=== PATIENT | female | born 1995 | race Caucasian/White ===

== ENCOUNTER 2018-07-27 08:57 | Emergency (ER) | payer MEDICAID ==
[~2018-07-27] VITALS: Ht 172.7 cm; Wt 88.6 kg
[2018-07-27 09:06] VITALS: Ht 172.7 cm; Wt 88.6 kg
[2018-07-27 09:34] LABS: BASOPHILS 0.2 % (0-2); EOSINOPHILS 1.7 % (0-7); HEMATOCRIT 41.2 % (36.0-48.0); HEMOGLOBIN 13.9 g/dL (12-16); IMMATURE GRANULOCYTES 0.1 % (0-5); LYMPHOCYTES 30.7 % (15-50); MCH 32.3 pg (26.0-34.0); MCHC 33.7 g/dL (31.0-37.0); MCV 95.6 fL (80.0-100.0); MEAN PLATELET VOLUME 11.3 fL (7.4-10.4); MONOCYTES 8.8 % (2-11); NEUTROPHILS 58.5 % (40-80); PLATELET COUNT 230 10x3/uL (130-400); RBC 4.31 10x6/uL (4.00-5.40); RDW 12.5 % (11.5-14.5); WBC 8.8 10x3/uL (4.8-10.8)
[2018-07-27 09:42] LABS: HCG SERUM NEGATIVE (NEGATIVE)
[2018-07-27 09:48] LABS: ALKALINE PHOSPHATASE 74 U/L (46-116); ALT (SGPT) 32 U/L (10-68); BILIRUBIN - TOTAL 0.21 mg/dL (0.2-1.3); CALC OSMOLALITY 281 mosm/kg (275-300); CALCIUM 9.5 mg/dL (8.5-10.1); CARBON DIOXIDE 30.1 mmol/L (21.0-32.0); CHLORIDE - SERUM 103 mmol/L (98-107); CREATININE - SERUM 0.7 mg/dL (0.6-1.3); GLUCOSE 92 mg/dL (74-106); POTASSIUM - SERUM 3.7 mmol/L (3.5-5.1); SODIUM 140 mmol/L (136-145); UREA NITROGEN 20 mg/dL (7-18); eGFR NON AFRICAN AMERICAN > 90 mL/min (90-120)
[2018-07-27 09:52] LABS: AMYLASE - SERUM 89 U/L (25-115); LIPASE 103 U/L (73-393)
[2018-07-27 09:57] LABS: APPEARANCE CLEAR (CLEAR); BILIRUBIN NEGATIVE (NEGATIVE); COLOR YELLOW (YELLOW); GLUCOSE NEGATIVE (NEGATIVE); KETONE NEGATIVE (NEGATIVE); NITRITE NEGATIVE (NEGATIVE); PROTEIN NEGATIVE (NEGATIVE); SPECIFIC GRAVITY 1.015 (1.005-1.020); UROBILINOGEN NORMAL (NORMAL)
[2018-07-27] MEDS ORDERED: ZOFRAN ODT4 MG/UDTAB PO (11:12)
[2018-07-27] MEDS ORDERED: ZANTAC300 MG PO (11:12)
[2018-07-27] MEDS ORDERED: FLORASTOR250 MG PO (11:12)
[2018-07-27 11:33] VITALS: BP 147/69
== END 2018-07-27 11:35 | disposition home or self-care (01) ==
LOC: D.ER 08:57
PROVIDERS: Family Medicine
DX: R11.2 Nausea with vomiting, unspecified (principal)

== ENCOUNTER 2018-11-26 13:25 | Emergency (ER) | payer MEDICARE, MEDICAID ==
[~2018-11-26] VITALS: Ht 172.7 cm; Wt 82.7 kg
[~2018-11-26 13:25] MED LIST: FLORASTOR250 MG PO; ZANTAC300 MG PO; ZOFRAN ODT4 MG/UDTAB PO
[2018-11-26 13:45] VITALS: Ht 172.7 cm; Wt 82.7 kg
[2018-11-26] MEDS ORDERED: VOLTAREN75 MG PO (16:04)
[2018-11-26] MEDS ORDERED: ZANAFLEX4 MG PO (16:04)
[2018-11-26 16:16] VITALS: BP 105/64
== END 2018-11-26 16:16 | disposition home or self-care (01) ==
LOC: D.ER 13:25
DX: G44.209 Tension-type headache, unspecified, not intractable (principal); V43.52XA Car driver injured in collision with other type car in traffic accident, initial encounter; Y92.410 Unspecified street and highway as the place of occurrence of the external cause